=== PATIENT | female | born 1955 | race American Indian/Alaskan Native ===

== ENCOUNTER 2016-09-17 13:43 | Outpatient (CLI) | payer BC ==
--- NOTE | 2016-09-17 15:05 | Mammography Report ---
BILATERAL DIGITAL SCREENING MAMMOGRAM with CAD: 09/17/16 13:43:00 CLINICAL: Routine screening. COMPARISON:None available. She has not had a mammogram over ten years. FINDINGS: There are bilateral scattered glandular densities. Bilateral benign calcifications. A circumscribed right lower mass at 6 o'clock approximately 12 cm from the nipple measures 1.1 cm and requires additional imaging.No architectural distortion or suspicious calcifications. IMPRESSION: Right breast mass at 6 o'clock requiring further workup. BI-RADS CATEGORY: 0 -- Additional Imaging Evaluation Required RECOMMENDATION: Recall for spot magnification views and a targeted right breast ultrasound. ACR BI-RADS MAMMOGRAPHIC CODES: 0 = Needs additional imaging evaluation; 1 = Negative; 2 = Benign; 3 = Probably benign; 4 = Suspicious; 5 = Malignant; 6 = Known biopsy-proven malignancy COMMENT: 1. Dense breast tissue, i.e., adenosis, fibrocystic changes, etc., may obscure an underlying neoplasm. 2. Approximately 10% of cancers are not detected with mammography. 3. A negative mammography report should not delay biopsy if a clinically suspicious mass is present. COMMENT: Patient follow-up letters are generated via our [employer] application.
== END 2016-09-17 13:44 | disposition home or self-care (01) ==
LOC: SPVWC 13:43
PROVIDERS: ATTEND Obstetrics & Gynecology
DX: Z12.31 Encounter for screening mammogram for malignant neoplasm of breast (principal)
CPT/HCPCS: 77067; G0202

== ENCOUNTER 2016-09-24 13:45 | Outpatient (CLI) | payer BC ==
--- NOTE | 2016-09-24 15:21 | Mammography Report ---
RIGHT DIGITAL DIAGNOSTIC MAMMOGRAM and RIGHT BREAST ULTRASOUND: 09/24/16 13:45:00 CLINICAL: Recalled for asymmetry. COMPARISON:09/17/16 screening FINDINGS: Spot magnification MLO and cc views were performed and demonstrate a persistent oval circumscribed mass measuring approximately 1 cm. Ultrasound of the lower right breast was performed and demonstrated a solid hypoechoic shadowing mass at 6 o'clock 6 cm from the nipple. It measures 1.0 x 0.5 x 0.9 cm and correlates with the mammographic mass. IMPRESSION: A 1 cm solid right breast mass at 6 o'clock. BI-RADS CATEGORY: 4--Suspicious RECOMMENDATION: Ultrasound guided needle core biopsy of the right breast. I discussed the findings and the recommendation for ultrasound guided needle core biopsy of the right breast with the patient at the time of the examination. ACR BI-RADS MAMMOGRAPHIC CODES: 0 = Needs additional imaging evaluation; 1 = Negative; 2 = Benign; 3 = Probably benign; 4 = Suspicious; 5 = Malignant; 6 = Known biopsy-proven malignancy COMMENT: 1. Dense breast tissue, i.e., adenosis, fibrocystic changes, etc., may obscure an underlying neoplasm. 2. Approximately 10% of cancers are not detected with mammography. 3. A negative mammography report should not delay biopsy if a clinically suspicious mass is present. COMMENT: Patient follow-up letters are generated via our [employer] application.
--- NOTE | 2016-09-24 16:08 | Ultrasound Report ---
RIGHT DIGITAL DIAGNOSTIC MAMMOGRAM and RIGHT BREAST ULTRASOUND: 09/24/16 13:45:00 CLINICAL: Recalled for asymmetry. COMPARISON:09/17/16 screening FINDINGS: Spot magnification MLO and cc views were performed and demonstrate a persistent oval circumscribed mass measuring approximately 1 cm. Ultrasound of the lower right breast was performed and demonstrated a solid hypoechoic shadowing mass at 6 o'clock 6 cm from the nipple. It measures 1.0 x 0.5 x 0.9 cm and correlates with the mammographic mass. IMPRESSION: A 1 cm solid right breast mass at 6 o'clock. BI-RADS CATEGORY: 4--Suspicious RECOMMENDATION: Ultrasound guided needle core biopsy of the right breast. I discussed the findings and the recommendation for ultrasound guided needle core biopsy of the right breast with the patient at the time of the examination.
== END 2016-09-24 13:46 | disposition home or self-care (01) ==
LOC: SPVWC 13:45
PROVIDERS: ATTEND Obstetrics & Gynecology
DX: N63 Unspecified lump in breast (principal)
CPT/HCPCS: 76642; G0206

== ENCOUNTER 2016-09-30 13:16 | Outpatient (CLI) | payer BC ==
--- NOTE | 2016-09-30 14:45 | Mammography Report ---
RIGHT DIGITAL DIAGNOSTIC MAMMOGRAM: 09/30/16 13:16:00 CLINICAL: For clip placement immediately status post ultrasound biopsy. COMPARISON:09/24/16 FINDINGS: A biopsy clip is now identified within the mass at 6 o'clock. IMPRESSION: Concordant clip placement status post ultrasound biopsy. BI-RADS CATEGORY: 4--Suspicious Pathology pending.
--- NOTE | 2016-09-30 14:54 | Ultrasound Report ---
ULTRASOUND GUIDED NEEDLE CORE BIOPSY RIGHT BREAST WITH CLIP PLACEMENT: 09/30/16 CLINICAL: Right breast mass at 6 o'clock 6 cm from the nipple. COMPARISON :09/24/16 FINDINGS: The procedure was explained to the patient and informed consent was obtained. Ultrasound demonstrated the previously described oval solid hypoechoic mass at 6 o'clock. I marked the breast with a felt tip marker and a time out was called. The skin was prepped with Betadine and anesthetized with 1% lidocaine. Needle core biopsy was performed through a tiny dermatotomy using ultrasound guidance, 2% lidocaine with epinephrine for deep anesthesia and a 14-gauge Achieve biopsy device. Imaging demonstrated satisfactory sampling. Multiple cores were obtained and placed in formalin. A clip was slowly within the mass. The patient tolerated the procedure well and there were no apparent complications. Hemostasis was achieved with gentle pressure and a sterile dressing was applied. A two view mammogram demonstrated concordant placement of the clip. She left the department in good condition and was given instructions for wound care and followup. IMPRESSION: Uncomplicated ultrasound guided needle core biopsy with clip placement right breast.
== END 2016-09-30 13:17 | disposition home or self-care (01) ==
LOC: SPVWC 13:16
PROVIDERS: ATTEND Obstetrics & Gynecology
DX: N63 Unspecified lump in breast (principal)
CPT/HCPCS: 19083; 88305; A4648; G0206

== ENCOUNTER 2016-12-12 14:19 | Outpatient (CLI) | payer BC ==
--- NOTE | 2016-12-12 15:10 | XRay Report ---
Right and left foot: History: Bilateral foot pain. Findings: Hallux valgus metatarsophalangeal joint great toe left and right foot. More pronounced on the left foot. No periosteal reaction, lytic lesion or soft tissue calcification. Impression: Findings as detailed above.
== END 2016-12-12 14:20 | disposition home or self-care (01) ==
LOC: SPVIMAG 14:19
PROVIDERS: ATTEND Physician Assistant Medical
DX: M20.12 Hallux valgus (acquired), left foot (principal); M20.11 Hallux valgus (acquired), right foot

== ENCOUNTER 2017-10-28 09:15 | Outpatient (CLI) | payer BC ==
--- NOTE | 2017-10-28 13:25 | Ultrasound Report ---
BILATERAL DIGITAL DIAGNOSTIC MAMMOGRAM with CAD and LEFT BREAST ULTRASOUND: 10/28/17 09:00:00 CLINICAL: This patient reportedly had an abnormal finding in the left breast on a CT Chest done at [facility]. I do not have a report or images from that exam. The order was for a left mammogram but she was due for screening of the right breast. Status post right ultrasound guided needle biopsy of a benign fibroadenoma on 09/30/16. COMPARISON:09/24/16 bilateral mammogram FINDINGS: The breasts are mostly fatty with a few scattered bilateral fibroglandular densities.A right lower biopsy clip is identified adjacent to a stable small fibroadenoma.Bilateral benign calcifications. A 3 mm round slightly irregular left outer asymmetry persists on a spot magnification view. There is questionable correlation on the MLO views. A 3.6 cm left axillary lymph node with fatty hilum is not significantly changed compared to the prior mammogram. Ultrasound of the outer left breast was performed and demonstrated a 3 mm relatively anechoic cyst at 2:30 o'clock 10 cm from the nipple. It measures 3 x 3 x 3 mm and correlates with the mammographic finding on the CC view of the mammogram. No cyst or mass identified. IMPRESSION: A probably benign 3 mm left breast cyst at 2:30 o'clock 10 cm from the nipple. A stable benign left axillary lymph node and no other suspicious finding on the mammogram or by ultrasound. BI-RADS CATEGORY: 3 - - Probably Benign RECOMMENDATION: Six month followup left mammogram and left breast ultrasound. We will also attempt to obtain the previous CT for comparison. ACR BI-RADS MAMMOGRAPHIC CODES: 0 = Needs additional imaging evaluation; 1 = Negative; 2 = Benign; 3 = Probably benign; 4 = Suspicious; 5 = Malignant; 6 = Known biopsy-proven malignancy COMMENT: 1. Dense breast tissue, i.e., adenosis, fibrocystic changes, etc., may obscure an underlying neoplasm. 2. Approximately 10% of cancers are not detected with mammography. 3. A negative mammography report should not delay biopsy if a clinically suspicious mass is present. COMMENT: Patient follow-up letters are generated by our [employer] application.
== END 2017-10-28 09:16 | disposition home or self-care (01) ==
LOC: SPVWC 09:15
PROVIDERS: ATTEND Internal Medicine Hematology & Oncology
DX: C19 Malignant neoplasm of rectosigmoid junction (principal); R92.1 Mammographic calcification found on diagnostic imaging of breast
CPT/HCPCS: 77066